=== PATIENT | female | born 1970 | race Two or more races ===

== ENCOUNTER → 2016-12-12 | Outpatient (CLI) | payer OTHER ==
--- NOTE | 2016-12-12 21:48 | REP ---
RIGHT SHOULDER, THREE VIEWS: Three views of the right shoulder are performed. There is no acute fracture or dislocation. There appears to have been prior resection of the distal end of the clavicle. IMPRESSION: No acute fracture or dislocation. Signed by Govind Saavedra MD 12/13/2016 04:59 P
--- NOTE | 2016-12-12 21:48 | REP ---
RIGHT HUMERUS, TWO VIEWS: There is no evidence of an acute fracture, dislocation or intrinsic bone disease. IMPRESSION: No fracture or dislocation. Signed by Govind Saavedra MD 12/13/2016 04:59 P
--- NOTE | 2016-12-12 23:19 | REP ---
RIGHT FOREARM, TWO VIEWS: There is no evidence of an acute fracture, dislocation or intrinsic bone disease. IMPRESSION: No fracture or dislocation. Signed by Govind Saavedra MD 12/13/2016 04:59 P
--- NOTE | 2016-12-12 23:19 | REP ---
RIGHT ELBOW, FOUR VIEWS: There is no evidence of an acute fracture, dislocation or intrinsic bone disease. IMPRESSION: No fracture or dislocation. Signed by Govind Saavedra MD 12/13/2016 04:59 P
--- NOTE | 2016-12-12 23:20 | REP ---
RIGHT WRIST, FOUR VIEWS: There is no evidence of an acute fracture, dislocation or intrinsic bone disease. IMPRESSION: No fracture or dislocation. Signed by Govind Saavedra MD 12/13/2016 04:59 P
== END ==
LOC: M LRY 18:02
PROVIDERS: ATTEND Nurse Practitioner Family
DX: S59.901A Unspecified injury of right elbow, initial encounter (principal); S59.911A Unspecified injury of right forearm, initial encounter; S49.91XA Unspecified injury of right shoulder and upper arm, initial encounter; S69.91XA Unspecified injury of right wrist, hand and finger(s), initial encounter; X58.XXXA Exposure to other specified factors, initial encounter; Y92.9 Unspecified place or not applicable; Y93.9 Activity, unspecified; Y99.9 Unspecified external cause status

== ENCOUNTER → 2019-08-19 | Outpatient (CLI) | payer BC | LOC: M SLEEP 19:42 | PROVIDERS: ATTEND Internal Medicine Pulmonary Disease | DX: G47.30 Sleep apnea, unspecified (principal) ==

== ENCOUNTER → 2019-10-29 | Outpatient (CLI) | payer BC ==
--- NOTE | 2019-11-04 08:51 | SLEEPCENT ---
DATE OF PROCEDURE: 10/29/2019 INTERPRETATION: Nocturnal polysomnography was performed for the titration of pressure therapy in this patient with obstructive sleep apnea syndrome. Apnea-hypopnea index of 21. For testing, the patient was fit with a [employer] Quattro full-face mask of extra small size, 4 cm of water pressure were applied to the circuit and the lights were extinguished. 8 hours and 17 minutes of data were reviewed. There were 372.5 minutes of sleep identified. Sleep latency was prolonged at 27 minutes. REM sleep was not achieved. Overall sleep architecture remained somewhat fragmented with poor progression. The overall sleep efficiency was 75.8%. The patient's electrocardiogram showed a sinus rhythm with an average heart rate of 63 beats per minute. EEG showed normal waveforms for awake and sleep. Respiratory events persisted intermittently prompting and increases CPAP pressure. Best sleep seen on CPAP pressure of +16. There were only one obstructive events identified and oxygen saturations remained good. IMPRESSION: Obstructive sleep apnea syndrome (G47.33) RECOMMENDATIONS: Nightly use of pressure therapy 16 cm of water.
== END ==
LOC: M SLEEP 20:00
PROVIDERS: ATTEND Internal Medicine Pulmonary Disease
DX: G47.33 Obstructive sleep apnea (adult) (pediatric) (principal)